=== PATIENT | male | born 2000 | race Caucasian/White ===

== ENCOUNTER 2022-03-19 22:19 | Emergency (ER) | payer SELFPAY ==
[~2022-03-19] VITALS: Ht 177.8 cm; Wt 100.0 kg
[2022-03-19 22:28] VITALS: BP 110/56
[2022-03-19] MEDS ORDERED: SODIUM CHLORIDE 0.9% 1,000 ML IV ONE (23:00)
[2022-03-19 23:29] LABS: BASOPHILS % 0.4 % (0.0-2.0); EOSINOPHILS % 0.2 % (0.0-5.0); HEMATOCRIT. 38.3 % (42.0-52.0); HEMOGLOBIN. 12.9 g/dL (14.0-18.0); LYMPHOCYTES % 18.1 % (20.0-50.0); MEAN CORPUSCULAR HEMOGLOBIN 31.2 pg (28.0-32.0); MEAN CORPUSCULAR VOLUME 92.6 fL (80.0-94.0); MEAN PLATELET VOLUME 9.5 fl (7.4-10.4); MONOCYTES % 4.6 % (2.0-8.0); NEUTROPHILS % 76.7 % (40.0-76.0); PLATELET 175 x1000/uL (130-400); RED BLOOD CELL COUNT 4.14 mill/uL (4.7-6.1); RED CELL DISTRIBUTION WIDTH 13.4 % (11.6-14.6)
[2022-03-19 23:35] LABS: CHLORIDE 108 mEq/L (98-107)
[2022-03-19 23:44] LABS: ETHANOL BLOOD 294 mg/dL
== END 2022-03-20 00:23 | disposition left against medical advice (07) ==
LOC: ER 22:19
DX: R41.82 Altered mental status, unspecified (principal); F10.99 Alcohol use, unspecified with unspecified alcohol-induced disorder; S00.81XA Abrasion of other part of head, initial encounter; R00.0 Tachycardia, unspecified; Y90.9 Presence of alcohol in blood, level not specified; X58.XXXA Exposure to other specified factors, initial encounter; Y93.9 Activity, unspecified; Y92.252 Music hall as the place of occurrence of the external cause
CPT/HCPCS: 36415; 80053; 80320; 85025; 93005; 96360; 99291; J7030; G0480